=== PATIENT | female | born 1970 | race African-American/Black ===

== ENCOUNTER 2017-10-07 21:42 | Emergency (ER) | payer MEDICAID ==
[~2017-10-07] VITALS: Ht 165.1 cm; Wt 83.5 kg
[2017-10-07 21:45] VITALS: Ht 165.1 cm; Wt 83.5 kg
[2017-10-07 23:39] VITALS: BP 130/64
== END 2017-10-07 23:39 | disposition home or self-care (01) ==
LOC: ED 21:42
DX: M79.642 Pain in left hand (principal); M79.641 Pain in right hand; F20.9 Schizophrenia, unspecified; Z00.00 Encounter for general adult medical examination without abnormal findings

== ENCOUNTER 2020-03-15 20:16 | Emergency (ER) | payer MEDICAID ==
[~2020-03-15] VITALS: Ht 165.1 cm; Wt 87.1 kg
[2020-03-15 20:25] VITALS: BP 139/74; Ht 165.1 cm; Wt 87.1 kg
== END 2020-03-15 22:30 | disposition home or self-care (01) ==
LOC: ED 20:16
DX: K57.90 Diverticulosis of intestine, part unspecified, without perforation or abscess without bleeding (principal); F31.9 Bipolar disorder, unspecified; Z88.0 Allergy status to penicillin; Z88.5 Allergy status to narcotic agent
CPT/HCPCS: J1885